=== PATIENT | female | born 2005 | race Caucasian/White ===

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

== ENCOUNTER 2024-03-20 00:35 | Emergency (ER) | payer BC, OTHER ==
[2024-03-20 01:19] LABS: Bilirubin Neg (Negative); Blood, Urine 250 (Negative); Clarity Slightly Cloudy (Clear); Glucose, Urine (Dipstick) Normal (Negative); Ketone, Urine Negative (Negative); Leukocyte 25 (Negative); Nitrite Negative (Negative); Protein, Urine (Dipstick) 30 mg/dl (Neg-Trace); Urobilinogen Normal mg/dL (Less than 2)
[2024-03-20 01:34] LABS: #Monocytes 0.92 10x3/uL (0.0-1.1); #Neutrophils 4.52 10x3/uL (1.5-8.4); %Basophils 1.2 % (0.0-2.0); %Eosinophils 8.2 % (0.0-6.0); %Lymphocytes 26.4 % (18.0-47.0); %Monocytes 10.8 % (0.0-10.0); %Neutrophils 53.2 % (40.0-75.0); Hemoglobin 13.6 g/dL (12.0-15.5); Mean Corpuscular HGB CONC 35.8 g/dL (32.0-36.0); Mean Corpuscular Hemoglobin 31.3 pg (27.0-33.0); Mean Corpuscular Volume 87.6 fL (81.6-98.3); Mean Platelet Volume 9.5 fL (7.4-10.4); Platelet Count 358 10x3/uL (150-450); RBC Distribution Width 12.4 % (11.5-14.5); Red Blood Cell (RBC) Count 4.34 10x6/uL (3.90-5.03); White Blood Cell (WBC) Count 8.5 10x3/uL (3.5-10.5)
[2024-03-20 01:36] LABS: BHCG - Serum Negative (NEGATIVE); Pregs Control Background? CLEAR/WHITE (CLR/WHITE); Pregs Control Bar Appear? YES (CONTROL BAR)
[2024-03-20 01:47] LABS: ALT (SGPT) 12 U/L (8-55); AST (SGOT) 15 U/L (5-30); Albumin 3.9 g/dL (3.5-5.0); Alkaline Phosphatase 85 U/L (40-100); Anion Gap 15 mmol/L (10-20); BUN (Urea Nitrogen) 8 mg/dL (8.4-21.0); Bilirubin, Total 0.2 mg/dL (0.2-1.2); Calc. Creatinine Clearance 0 mL/min (70-130); Calcium 9.4 mg/dL (7.8-10.44); Carbon Dioxide 20 mmol/L (22-29); Chloride 107 mmol/L (98-107); Estimated GFR 123; Globulin 3.4 g/dL (2.4-3.5); Glucose 74 mg/dL (70-105); Lipase 19 U/L (8-78); Potassium 3.9 mmol/L (3.5-5.1); Protein, Total 7.3 g/dL (6.0-8.3); Sodium 138 mmol/L (136-145)
[2024-03-20 01:47] LABS: CAUTI Indications for Culture Pelvic or flank pain
[2024-03-20 01:48] LABS: Bacteria/HPF 3+ HPF (None Seen); Urine Culture Reflex No No
[2024-03-20] MEDS ORDERED: Cephalexin 250 MG CAP ONE (05:05)
[2024-03-20 20:22] LABS: Chlamydia by PCR, Vaginal Swab DETECTED (NotDetected); GC by PCR, Vaginal Swab Not Detected (NotDetected)
== END 2024-03-20 05:11 | disposition home or self-care (01) ==
LOC: CSHERS 00:35
DX: N83.202 Unspecified ovarian cyst, left side (principal); N39.0 Urinary tract infection, site not specified; F17.290 Nicotine dependence, other tobacco product, uncomplicated
CPT/HCPCS: 76856; 80053; 81001; 83605; 83690; 83735; 84703; 85025; 87480; 87491; 87510; 87591; 87660